=== PATIENT | female | born 1945 | race Caucasian/White ===

== ENCOUNTER → 2017-03-13 | Outpatient (CLI) | payer MEDICARE, BC ==
[~2017-03-13] MED LIST: ADVIL200 MG; PRILOSEC 20MG20 MG PO; SYNTHROID 0.0.025 MG PO; TYLENOL COLD M240 M1
== END ==
LOC: MC.RAD 13:55
DX: Z12.31 Encounter for screening mammogram for malignant neoplasm of breast (principal)

== ENCOUNTER → 2018-03-18 | Outpatient (CLI) | payer MEDICARE, BC | LOC: COL.RAD 08:46 | DX: I70.0 Atherosclerosis of aorta (principal); Z82.49 Family history of ischemic heart disease and other diseases of the circulatory system ==

== ENCOUNTER → 2018-03-24 | Outpatient (CLI) | payer MEDICARE, BC | LOC: MC.RAD 13:33 | DX: Z12.31 Encounter for screening mammogram for malignant neoplasm of breast (principal); N64.89 Other specified disorders of breast ==

== ENCOUNTER → 2018-04-02 | Outpatient (CLI) | payer MEDICARE, BC | LOC: MC.RAD 12:56 | DX: N64.89 Other specified disorders of breast (principal) ==

== ENCOUNTER → 2019-05-02 | Outpatient (CLI) | payer MEDICARE, BC | LOC: MC.RAD 07:15 | DX: Z12.31 Encounter for screening mammogram for malignant neoplasm of breast (principal) ==

== ENCOUNTER → 2020-06-01 | Outpatient (CLI) | payer MEDICARE, BC | LOC: MC.RAD 12:41 | DX: Z12.31 Encounter for screening mammogram for malignant neoplasm of breast (principal) ==

== ENCOUNTER → 2020-11-09 | Outpatient (CLI) | payer MEDICARE, BC | LOC: COL.RAD 11:30 | DX: N30.21 Other chronic cystitis with hematuria (principal) ==

== ENCOUNTER → 2021-07-09 | Outpatient (CLI) | payer BC | LOC: MC.RAD 10:05 | DX: Z12.31 Encounter for screening mammogram for malignant neoplasm of breast (principal); N64.89 Other specified disorders of breast ==

== ENCOUNTER → 2021-07-12 | Outpatient (CLI) | payer BC | LOC: MC.RAD 10:28 | DX: N64.89 Other specified disorders of breast (principal) ==

== ENCOUNTER → 2024-02-25 | Outpatient (CLI) | payer MEDICARE | LOC: MC.RAD 08:58 | DX: N60.12 Diffuse cystic mastopathy of left breast (principal) ==